=== PATIENT | female | born 1995 | race African-American/Black ===

== ENCOUNTER 2017-07-22 21:35 | Emergency (ER) | payer OTHER ==
[~2017-07-22] VITALS: Ht 160 cm; Wt 86.2 kg
[2017-07-22 21:56] VITALS: BP 104/64
[2017-07-22] MEDS ORDERED: SULF1TAB24 PO (22:40)
[2017-07-22] MEDS ORDERED: IBUP-1060 PO (22:41)
[2017-07-22] MEDS ORDERED: LIDOCAINE 1% / SOD BICARB 8.4% 20 ML VIAL. IJ ONE (22:45)
--- NOTE | 2017-07-22 23:10 | PHYS DOC ---
Past Medical History Past Medical History: Other Additional Past Medical Histor: ADHD Past Surgical History: No Surgical History Alcohol Use: Occasionally Drug Use: None Adult General Chief Complaint Chief Complaint: ABSCESS HPI HPI Patient is a 22 year old female who presents with an abscess to the right under arm that the patient states started bothering her today. She is unsure of when exactly the infection started. She took ibuprofen 800 mg at home with little relief. Review of Systems Review of Systems Constitutional: Denies fever or chills [] Respiratory: Denies cough or shortness of breath [] Cardiovascular: No additional information not addressed in HPI [] Musculoskeletal: Denies back pain or joint pain [] Integument: See history of present illness Neurologic: Denies headache, focal weakness or sensory changes [] Endocrine: Denies polyuria or polydipsia [] All other systems were reviewed and found to be within normal limits, except as documented in this note. Current Medications Current Medications Current Medications Medications (Trade) Dose Ordered Sig/Zoe Start Time Stop Time Status Last Admin Dose Admin Lidocaine/Sodium Bicarbonate (Buffered Lidocaine 1%) 20 ml 1X ONCE 07/22/17 22:45 07/22/17 22:51 DC 07/22/17 22:35 20 ML Allergies Allergies Allergies Coded Allergies Type Severity Reaction Last Updated Verified No Known Drug Allergies 07/22/17 No Physical Exam Physical Exam Constitutional: Well developed, well nourished, no acute distress, non-toxic appearance. [] Cardiovascular:Heart rate regular rhythm, no murmur [] Lungs & Thorax: Bilateral breath sounds clear to auscultation [] Skin: There is a 3 cm abscess to the right axilla with fluctuance and induration noted, erythema extends approximately 6 cm outside of the lesion Neurologic: Alert and oriented X 3, normal motor function, normal sensory function, no focal deficits noted. [] Psychologic: Affect normal, judgement normal, mood normal. [] Current Patient Data Vital Signs Vital Signs Date Time Temp Pulse Resp B/P (MAP) Pulse Ox O2 Delivery O2 Flow Rate FiO2 07/22/17 21:56 98.7 100 16 99 Room Air 98.7 EKG EKG [] Radiology/Procedures Radiology/Procedures [] Impressions: Procedure: Incision and drainage Indication: Large abscess with induration and fluctuance to the right axilla Preparation technique: Buffered lidocaine was injected into the lesion, an 11 blade was used with immediate expression of thick purulent material. Results: Purulent drainage of approximately 25 ml expressed from the wound There were no complications. Course & Med Decision Making Course & Med Decision Making Pertinent Labs and Imaging studies reviewed. (See chart for details) []1. Abscess Following incision and drainage of the abscess the patient was dressed with a thick bulky dressing. The patient was given a prescription for ibuprofen for pain. The patient was placed on Bactrim DS as an antibiotic. She is to take all of the antibiotic until it is gone. She is to follow-up with her primary care provider in approximately 2-3 days for recheck of this wound or to return to the ED if worsening. Dragon Disclaimer Dragon Disclaimer This electronic medical record was generated, in whole or in part, using a voice recognition dictation system. Departure Departure Impression: Primary Impression: Abscess Disposition: 01 HOME, SELF-CARE Condition: STABLE Patient Instructions: Abscess Additional Instructions: Follow-up with your primary care provider in 3 days for recheck of this wound. Take antibiotics as prescribed. Return to the ED if worsening. Scripts Ibuprofen (IBUPROFEN) 800 Mg Tablet 800 MG PO PRN Q6HRS Y for INFLAMMATION, #20 TAB Prov: MARIA A DASH APRN 07/22/17 Sulfamethoxazole/Trimethoprim (BACTRIM DS TABLET) 1 Each Tablet 1 TAB PO BID, #20 TAB Prov: MARIA A DASH APRN 07/22/17 MARIA A DASH APRN Jul 22, 2017 23:10
== END 2017-07-22 22:53 | disposition home or self-care (01) ==
LOC: ER 21:35
DX: L02.411 Cutaneous abscess of right axilla (principal); F90.9 Attention-deficit hyperactivity disorder, unspecified type
CPT/HCPCS: 10060; 99283-25